=== PATIENT | female | born 1990 | race Caucasian/White ===

== ENCOUNTER 2017-09-13 16:56 | Emergency (ER) | payer BC, OTHER ==
[~2017-09-13] VITALS: Ht 165.1 cm; Wt 69.9 kg
[~2017-09-13 16:56] MED LIST: BCPILLS PO; CETI10TA73 PO; CLIN1GEL31 TD; ONDA4TAB7 SL; ONDA8TAB6 PO; PRAM1LOT TD; TRET0.023 TD; VNTHFA/IN INH
[2017-09-13 16:59] VITALS: Ht 165.1 cm; Wt 69.9 kg
[2017-09-13] MEDS ORDERED: ONDANSETRON INJ 2 MG/ML 2 ML VIAL IV STA (17:30)
[2017-09-13] MEDS ORDERED: LACTATED RINGER S IV ONE (17:30)
[2017-09-13] MEDS ORDERED: ETONMIS VAGRING (17:31)
--- NOTE | 2017-09-13 18:14 | EMERGENCY ROOM VISIT NOTE ---
History First contact with patient: 17:04 Chief Complaint: VOMITING Stated Complaint: VOMITING Nursing Triage Summary: patient c/o vomiting since 1 am. patient went to urgent care around noon. was given a zofran and sent home. History of Present Illness The patient is a 27 year old female who presents to the Emergency Room with complaints of intractable vomiting since 1AM. She reports she woke up in the middle of the night and was vomiting every 1/2 hour to hour. Initially, she was vomiting up food and bile, but this later changed to solely clear fluid. She states after her first episode of vomiting, she had bilateral flank pain radiating into her back, 5-6/10 in severity and dull in nature. She stated she had fever, chills, but did not take her temperature. She denies diarrhea, and stated she had a normal bowel movement this morning. She also denies urinary frequency, urgency or dysuria. She has not been able to eat all day, but has been trying to drink fluids. She reports she went to an urgent care center, where they gave her zofran which slowed down the frequency of her vomiting. She denies the possibility of being , and is currently on a control pill. She reported she did eat portuguese take-out last night, but that both her parents ate it too and are not exhibiting symptoms. No recent illnesses, no recent travel, no history of abdominal surgeries. Review of Systems See HPI for pertinent positives & negatives. A total of 10 systems reviewed and were otherwise negative. Past Medical/Surgical History Medical Problems: (1) Asthma (2) Pneumonia Social History Smoking Status: Never Smoker Alcohol Use: occasionally Drug Use: none Housing Status: lives with family Occupation Status: employed Current/Historical Medications Scheduled Cetirizine Hcl (All Day Allergy), 10 MG PO HS Clindamycin/Benzoyl Peroxide (Benzaclin), 1 APPLN TD QAM Etonogestrel/Ethinyl Estradiol (Nuvaring), 1 EA VAGRING MONTHLY Pramoxine Hcl (Sarna Sensitive Anti-Itch), 1 APPLN TD PRN Tretinoin (Retin-A), 1 APPLN TD HS Allergies Cephalexin - hives Physical Exam Vital Signs Date Time Temp Pulse Resp B/P (MAP) Pulse Ox O2 Delivery O2 Flow Rate FiO2 09/13/17 20:09 37.3 84 18 96/65 98 Room Air 09/13/17 19:27 37.3 18 95/64 99 Room Air 09/13/17 18:20 37.8 96 18 102/72 99 Room Air 09/13/17 16:59 37.4 133 18 107/68 96 Room Air Physical Exam HEENT: Head - normocephalic and atraumatic. Nose - moist nasal mucosa without discharge. Mouth - dry buccal mucosa. Oropharynx is nonerythematous and there is no tonsillar exudate or edema noted.. Heart: Tachycardic. Regular rate and rhythm. There is a normal S1 and S2 with no murmurs, clicks, or gallops appreciated. Lungs: Clear to auscultation bilaterally with no wheezes, rales, or rhonchi. Abdomen: Soft, nondistended, with good bowel sounds. Tender over flank region. There is no guarding, rigidity, or rebound noted. Extremities: No evidence of cyanosis, clubbing, or edema. There are easily palpable peripheral pulses. Neuro:The patient is awake and alert, oriented to day, time, and place. Medical Decision & Procedures ER Provider Diagnostic Interpretation: PA CHEST WITH ABDOMINAL SERIES CLINICAL HISTORY: Vomiting. FINDINGS: A PA chest radiograph is obtained. No prior studies are available for comparison at the time of dictation. The cardiomediastinal silhouette is unremarkable. The lungs and pleural spaces are clear. No pneumothorax is seen. The bony thorax is grossly intact. Supine and erect abdominal radiographs are obtained. No prior studies are available for comparison at the time of dictation. There is a nonobstructed abdominal bowel gas pattern. No evidence of intraperitoneal free air is seen. There are no abnormal abdominal calcifications. The lumbosacral spine and bony pelvis appear intact. IMPRESSION: 1. No active disease in the chest. 2. Nonobstructed abdominal bowel gas pattern. Laboratory Results 09/13/17 18:05 09/13/17 18:05 Test 09/13/17 17:30 09/13/17 18:05 09/13/17 19:07 Red Blood Count 4.64 M/uL (4.2-5.4) Mean Corpuscular Volume 90.7 fL (80-100) Mean Corpuscular Hemoglobin 31.9 pg (25-34) Mean Corpuscular Hemoglobin Concent 35.2 g/dl (32-36) RDW Standard Deviation 41.3 fL (36.4-46.3) RDW Coefficient of Variation 12.5 % (11.5-14.5) Mean Platelet Volume 10.1 fL (7.4-10.4) Anion Gap 12.0 mmol/L (3-11) Est Creatinine Clear Calc Drug Dose 89.3 ml/min Estimated GFR () 98.2 Estimated GFR (Non- 84.7 BUN/Creatinine Ratio 23.0 (10-20) Calcium Level 9.0 mg/dl (8.5-10.1) Total Bilirubin 0.3 mg/dl (0.2-1) Aspartate Amino Transf (AST/SGOT) 22 U/L (15-37) Alanine Aminotransferase (ALT/SGPT) 25 U/L (12-78) Alkaline Phosphatase 76 U/L (45-117) Total Protein 7.7 gm/dl (6.4-8.2) Albumin 3.6 gm/dl (3.4-5.0) Globulin 4.1 gm/dl (2.5-4.0) Albumin/Globulin Ratio 0.9 (0.9-2) Lipase 60 U/L (73-393) Urine Color DK YELLOW Urine Appearance CLEAR (CLEAR) Urine pH 6.5 (4.5-7.5) Urine Specific [place] 1.035 (1.000-1.030) Urine Protein TRACE (NEG) Urine Glucose (UA) NEG (NEG) Urine Ketones 2+ (NEG) Urine Occult Blood NEG (NEG) Urine Nitrite NEG (NEG) Urine Bilirubin NEG (NEG) Urine Urobilinogen NEG (NEG) Urine Leukocyte Esterase NEG (NEG) Urine WBC (Auto) 1-5 /hpf (0-5) Urine RBC (Auto) 5-10 /hpf (0-4) Urine Hyaline Casts (Auto) 1-5 /lpf (0-5) Urine Epithelial Cells (Auto) >30 /lpf (0-5) Urine Bacteria (Auto) 1+ (NEG) Medications Administered Medications (Trade) Dose Ordered Sig/Myke Route Start Time Stop Time Status Last Admin Dose Admin Lactated Ringer's 2,000 ml @ 999 mls/hr Q2H1M ONCE IV 09/13/17 17:30 09/13/17 19:30 DC 09/13/17 17:59 999 MLS/HR Ondansetron HCl (Zofran Inj) 4 mg NOW STAT IV 09/13/17 17:30 09/13/17 17:34 DC 09/13/17 18:00 4 MG Ketorolac Tromethamine (Toradol Inj) 15 mg NOW ONCE IV 09/13/17 19:30 09/13/17 19:31 DC 09/13/17 19:30 15 MG ED Course 17:04: The patient was evaluated in room C3. A complete history and physical exam was performed. 17:20: The case was discussed with the attending, Dr. Cardenas. 17:30: 2L IV Ringer's Lactate ordered and 4mg IV Zofran given 18:56: Patient was reassessed. She has not had anymore episodes of vomiting. 17:25: Patient states she would like medication for pain. 17:30: 15mg IV Toradol ordered 19:53: Patient was reassessed. She states her pain has improved and she is feeling less nauseous than before. Medical Decision Etiologies such as acute gastroenteritis, small bowel obstruction, pyelonephritis, kidney stone, UTI, appendicitis, as well as others were entertained. Ms. De Jesus is a 27 year old female who presented to the ED with intractable vomiting and flank pain. Her CBC, CMP and lipase were unremarkable, apart from a potassium of 3.2. Her abdominal and chest xray did not show any evidence for a bowel obstruction. Her urinalysis was likely contaminated, but did show small amounts of blood. This could be due to the straining from her recurrent vomiting and we recommended she have a UA repeated with her PCP once she recovered. Her abdomen was soft, slightly tender, but without rebound tenderness or guarding. The lab results and x-ray findings were discussed with the patient and she was agreeable to discharge. Her symptoms are likely viral in etiology, and she was counselled on returning if her symptoms worsened. She received sublingual zofran from the urgent care center, and was told to eat a bland diet, use Tylenol prn for pain and follow up with her PCP. Impression Primary Impression: Gastroenteritis Departure Information Dispostion Home / Self-Care Referrals No Doctor, Assigned (PCP) Patient Instructions My [facility] Additional Instructions You came to [facility] emergency department due to recurrent episodes of vomiting. We gave you some fluids and checked an abdominal and chest x-ray as well as blood work to assess your kidney, liver and pancreatic function. These all came back normal. We also gave you some zofran and medication for the pain. Given that your blood work, x-rays and urine were normal, your symptoms are likely due to a infection that will improve with time. We recommend you eat a bland diet, take your zofran for nausea, Tylenol for your pain, and rest until your symptoms improve. If you develop worsening nausea and vomiting, fevers, worsening abdominal pain, please come back in to be assessed. As we discussed, your urine did have a small amount of blood in it, which could be due to the straining from your continuous vomiting. Please see your primary care provider once you are feeling better to have a repeat urine test. Resident Tracking Resident Involvement: Resident Care Provided Care Provided: Adult ED
[2017-09-13 18:31] LABS: HEMATOCRIT 42.1 % (37-47); HEMOGLOBIN 14.8 g/dL (12.0-16.0); MEAN CELL VOLUME 90.7 fL (80-100); MEAN CORPUSCULAR HEMOGLOBIN 31.9 pg (25-34); MEAN CORPUSCULAR HGB CONC 35.2 g/dl (32-36); MEAN PLATELET VOLUME 10.1 fL (7.4-10.4); PLATELET COUNT 256 K/uL (130-400); RED CELL DISTRIBUTION WIDTH CV 12.5 % (11.5-14.5); RED CELL DISTRIBUTION WIDTH SD 41.3 fL (36.4-46.3); WHITE BLOOD COUNT 8.14 K/uL (4.8-10.8)
--- NOTE | 2017-09-13 18:39 | EMERGENCY ROOM VISIT NOTE ---
History Report prepared by Marisela: Ying España Under the Supervision of: Dr. Ishmael Cardenas M.D. First contact with patient: 17:02 Chief Complaint: VOMITING Stated Complaint: VOMITING Nursing Triage Summary: patient c/o vomiting since 1 am. patient went to urgent care around noon. was given a zofran and sent home. History of Present Illness The patient is a 27 year old female who presents to the Emergency Room with complaints of persistent vomiting starting 8 hours ago. The patient woke up in the middle of the night and began vomiting. She has vomited every 30-60 minutes since then. She went to urgent care and was given Zofran. Her vomiting has slowed down since then. She is having constant bilateral flank pain which radiates to her back. She describes this pain as dull. She currently rates her discomfort as a 5-6/10 in severity. She feels feverish with chills. She denies any diarrhea or hematemesis. She had some take out yesterday, but her parents who shared the food with her do not have any symptoms. She denies any chance of . She is on control. She denies any recent travel. Source of History: patient Onset: 8 hours ago Position: other (global) Symptom Intensity: every 30-60 minutes Quality: other (vomiting) Timing: other (persistent) Associated Symptoms: + fevers, + chills, + back pain, No diarrhea Note: Pt reports bilateral flank pain. Review of Systems See HPI for pertinent positives & negatives. A total of 10 systems reviewed and were otherwise negative. Past Medical & Surgical Medical Problems: (1) Asthma (2) Pneumonia Family History No pertinent family history stated. Social History Smoking Status: Never Smoker Alcohol Use: occasionally Housing Status: lives with family Occupation Status: employed Current/Historical Medications Scheduled Cetirizine Hcl (All Day Allergy), 10 MG PO HS Clindamycin/Benzoyl Peroxide (Benzaclin), 1 APPLN TD QAM Etonogestrel/Ethinyl Estradiol (Nuvaring), 1 EA VAGRING MONTHLY Pramoxine Hcl (Sarna Sensitive Anti-Itch), 1 APPLN TD PRN Tretinoin (Retin-A), 1 APPLN TD HS Allergies Coded Allergies: Cephalexin (Verified Allergy, Unknown, ., 09/13/17) Physical Exam Vital Signs Date Time Temp Pulse Resp B/P (MAP) Pulse Ox O2 Delivery O2 Flow Rate FiO2 09/13/17 20:09 37.3 84 18 96/65 98 Room Air 09/13/17 19:27 37.3 18 95/64 99 Room Air 09/13/17 18:20 37.8 96 18 102/72 99 Room Air 09/13/17 16:59 37.4 133 18 107/68 96 Room Air Physical Exam GENERAL: Patient is in no acute distress. HEENT: No acute trauma, normocephalic atraumatic, mucous membranes dry, no nasal congestion, no scleral icterus. NECK: No stridor, no adenopathy, no meningismus, trachea is midline. LUNGS: Clear to auscultation bilaterally, no wheeze, no rhonchi, breath sounds equal. HEART: Without murmurs gallops or rubs, regular rate and rhythm. ABDOMEN: Soft, nontender, bowel sounds positive, no hernias, no peritonitis. BACK: Bilateral flank discomfort with percussion. EXTREMITIES: No cyanosis or edema, full range of motion of all the joints without pain or difficulty, no signs for acute trauma. NEUROLOGIC: Oriented x 3, no acute motor or sensory deficits, no focal weakness. SKIN: No rash, no jaundice, no diaphoresis. Medical Decision & Procedures ER Provider Diagnostic Interpretation: X-ray results as stated below per interpretation by me and the radiologist: PA CHEST WITH ABDOMINAL SERIES CLINICAL HISTORY: Vomiting. FINDINGS: A PA chest radiograph is obtained. No prior studies are available for comparison at the time of dictation. The cardiomediastinal silhouette is unremarkable. The lungs and pleural spaces are clear. No pneumothorax is seen. The bony thorax is grossly intact. Supine and erect abdominal radiographs are obtained. No prior studies are available for comparison at the time of dictation. There is a nonobstructed abdominal bowel gas pattern. No evidence of intraperitoneal free air is seen. There are no abnormal abdominal calcifications. The lumbosacral spine and bony pelvis appear intact. IMPRESSION: 1. No active disease in the chest. 2. Nonobstructed abdominal bowel gas pattern. Electronically signed by: Ishmael Willett M.D. 09/13/2017 6:52 PM Dictated Date/Time: 09/13/2017 6:51 PM Laboratory Results 09/13/17 18:05 1/8/18 18:05 Test 09/13/17 17:30 09/13/17 18:05 09/13/17 19:07 Red Blood Count 4.64 M/uL (4.2-5.4) Mean Corpuscular Volume 90.7 fL (80-100) Mean Corpuscular Hemoglobin 31.9 pg (25-34) Mean Corpuscular Hemoglobin Concent 35.2 g/dl (32-36) RDW Standard Deviation 41.3 fL (36.4-46.3) RDW Coefficient of Variation 12.5 % (11.5-14.5) Mean Platelet Volume 10.1 fL (7.4-10.4) Anion Gap 12.0 mmol/L (3-11) Est Creatinine Clear Calc Drug Dose 89.3 ml/min Estimated GFR () 98.2 Estimated GFR (Non- 84.7 BUN/Creatinine Ratio 23.0 (10-20) Calcium Level 9.0 mg/dl (8.5-10.1) Total Bilirubin 0.3 mg/dl (0.2-1) Aspartate Amino Transf (AST/SGOT) 22 U/L (15-37) Alanine Aminotransferase (ALT/SGPT) 25 U/L (12-78) Alkaline Phosphatase 76 U/L (45-117) Total Protein 7.7 gm/dl (6.4-8.2) Albumin 3.6 gm/dl (3.4-5.0) Globulin 4.1 gm/dl (2.5-4.0) Albumin/Globulin Ratio 0.9 (0.9-2) Lipase 60 U/L (73-393) Urine Color DK YELLOW Urine Appearance CLEAR (CLEAR) Urine pH 6.5 (4.5-7.5) Urine Specific [place] 1.035 (1.000-1.030) Urine Protein TRACE (NEG) Urine Glucose (UA) NEG (NEG) Urine Ketones 2+ (NEG) Urine Occult Blood NEG (NEG) Urine Nitrite NEG (NEG) Urine Bilirubin NEG (NEG) Urine Urobilinogen NEG (NEG) Urine Leukocyte Esterase NEG (NEG) Urine WBC (Auto) 1-5 /hpf (0-5) Urine RBC (Auto) 5-10 /hpf (0-4) Urine Hyaline Casts (Auto) 1-5 /lpf (0-5) Urine Epithelial Cells (Auto) >30 /lpf (0-5) Urine Bacteria (Auto) 1+ (NEG) Laboratory results reviewed by me. Medications Administered Medications (Trade) Dose Ordered Sig/Myke Route Start Time Stop Time Status Last Admin Dose Admin Lactated Ringer's 2,000 ml @ 999 mls/hr Q2H1M ONCE IV 09/13/17 17:30 09/13/17 19:30 DC 09/13/17 17:59 999 MLS/HR Ondansetron HCl (Zofran Inj) 4 mg NOW STAT IV 09/13/17 17:30 09/13/17 17:34 DC 09/13/17 18:00 4 MG Ketorolac Tromethamine (Toradol Inj) 15 mg NOW ONCE IV 09/13/17 19:30 09/13/17 19:31 DC 09/13/17 19:30 15 MG ED Course 1730: Zofran Inj 4 mg IV, Lactated Ringer's 2000 ml @ 999 mls/hr IV. 1820: The patient was evaluated in room C3. A complete history and physical exam was performed. 1929: Toradol Inj 15 mg IV. 1950: Reevaluated the patient. Discussed results and discharge instructions: She verbalized understanding and agreement. The patient is ready for discharge. Medical Decision Differential diagnoses considered include dehydration, renal or liver failure, pyelonephritis, UTI, electrolyte imbalance, viral illness, bowel obstruction. There is no leukocytosis or concerning anemia. No significant electrolyte abnormality, kidney failure or hepatitis. There is no pancreatitis. Urinalysis shows some contamination and dehydration, a scant amount of red blood cells were seen. testing was negative. Obstruction series does not show pneumonia, free air or bowel obstruction. On exam, the patient was not febrile or toxic. There was no peritonitis. Patient received IV fluids for hydration, she received IV Zofran and IV Toradol. She feels improved. No vomiting while here in the ED. Patient will be discharged to slowly advance her diet. Tylenol for pain. Zofran for nausea. She was encouraged to return here for any worsening symptoms or lack of improvement. She will follow with her doctors office for the scant amount of blood noted in the urine. In short, the patient's illness is likely viral and/or food borne. Medication Reconcilliation Current Medication List: was personally reviewed by me Blood Pressure Screening Patient's blood pressure: Normal blood pressure Blood pressure disposition: Did not require urgent referral Impression Primary Impression: Dehydration Additional Impression: Vomiting Scribe Attestation The scribe's documentation has been prepared under my direction and personally reviewed by me in its entirety. I confirm that the note above accurately reflects all work, treatment, procedures, and medical decision making performed by me. Departure Information Dispostion Home / Self-Care Referrals No Doctor, Assigned (PCP) Forms HOME CARE DOCUMENTATION FORM, IMPORTANT VISIT INFORMATION Patient Instructions My [facility] Additional Instructions You came to [facility] emergency department due to recurrent episodes of vomiting. We gave you some fluids and checked an abdominal and chest x-ray as well as blood work to assess your kidney, liver and pancreatic function. These all came back normal. We also gave you some zofran and medication for the pain. Given that your blood work, x-rays and urine were normal, your symptoms are likely due to a infection that will improve with time. We recommend you eat a bland diet, take your zofran for nausea, Tylenol for your pain, and rest until your symptoms improve. If you develop worsening nausea and vomiting, fevers, worsening abdominal pain, please come back in to be assessed. As we discussed, your urine did have a small amount of blood in it, which could be due to the straining from your continuous vomiting. Please see your primary care provider once you are feeling better to have a repeat urine test. Problem Qualifiers
[2017-09-13 18:40] LABS: ALBUMIN 3.6 gm/dl (3.4-5.0); CREATININE 0.92 mg/dl (0.60-1.20); POTASSIUM 3.2 mmol/L (3.5-5.1)
[2017-09-13 18:43] LABS: TOTAL PROTEIN 7.7 gm/dl (6.4-8.2)
--- NOTE | 2017-09-13 18:53 | DIAGNOSTIC IMAGING REPORT ---
PA CHEST WITH ABDOMINAL SERIES CLINICAL HISTORY: Vomiting. FINDINGS: A PA chest radiograph is obtained. No prior studies are available for comparison at the time of dictation. The cardiomediastinal silhouette is unremarkable. The lungs and pleural spaces are clear. No pneumothorax is seen. The bony thorax is grossly intact. Supine and erect abdominal radiographs are obtained. No prior studies are available for comparison at the time of dictation. There is a nonobstructed abdominal bowel gas pattern. No evidence of intraperitoneal free air is seen. There are no abnormal abdominal calcifications. The lumbosacral spine and bony pelvis appear intact. IMPRESSION: 1. No active disease in the chest. 2. Nonobstructed abdominal bowel gas pattern. Electronically signed by: Ishmael Willett M.D. 09/13/2017 6:52 PM Dictated Date/Time: 09/13/2017 6:51 PM
[2017-09-13] MEDS ORDERED: KETOROLAC TROMETHAMINE 30 MG/ML VIAL ONE (19:26)
[2017-09-13] MEDS ORDERED: KETOROLAC TROMETHAMINE 15 MG/ML VIAL IV ONE (19:30)
[2017-09-13 20:09] VITALS: BP 96/65; PULSE 84; TEMP 37.3; O2SAT 98
== END 2017-09-13 20:18 | disposition home or self-care (01) ==
LOC: C.EDB 16:58 → C.EDC 20:18
DX: E86.0 Dehydration (principal); R11.10 Vomiting, unspecified; J45.909 Unspecified asthma, uncomplicated; Z87.01 Personal history of pneumonia (recurrent)

== ENCOUNTER → 2017-09-29 | Outpatient (CLI) | payer OTHER ==
[~2017-09-29] MED LIST changes: -BCPILLS PO; +ETONMIS VAGRING; -ONDA4TAB7 SL; -ONDA8TAB6 PO; -VNTHFA/IN INH
== END | disposition home or self-care (01) ==
LOC: C.PAPS 09:40
PROVIDERS: ATTEND Obstetrics & Gynecology
DX: Z01.419 Encounter for gynecological examination (general) (routine) without abnormal findings (principal)

== ENCOUNTER → 2017-10-06 | Outpatient (CLI) | payer OTHER | END | disposition home or self-care (01) | LOC: C.LABSPEC 13:42 | PROVIDERS: ATTEND Physician Assistant | DX: Z30.430 Encounter for insertion of intrauterine contraceptive device (principal) ==